=== PATIENT | female | born 1970 | race Caucasian/White ===

== ENCOUNTER 2021-04-24 20:25 | Emergency (ER) | payer MEDICARE, OTHER ==
[~2021-04-24] VITALS: Ht 165.1 cm; Wt 136.1 kg
[~2021-04-24 20:25] MED LIST: FLUPHENAZINE
[2021-04-24 23:31] LABS: BASOPHILS % 0.5 % (0.0-2.0); EOSINOPHILS % 2.2 % (0.0-5.0); HEMATOCRIT. 38.8 % (36.0-48.0); HEMOGLOBIN. 12.7 g/dL (12.0-16.0); LYMPHOCYTES % 30.5 % (20.0-50.0); MEAN CORPUSCULAR VOLUME 85.1 fL (81.0-99.0); MEAN PLATELET VOLUME 6.7 fl (7.4-10.4); MONOCYTES % 7.4 % (2.0-8.0); NEUTROPHILS % 59.4 % (40.0-76.0); PLATELET 178 x1000/uL (130-400); RED BLOOD CELL COUNT 4.55 mill/uL (4.2-5.4); RED CELL DISTRIBUTION WIDTH 15.1 % (11.6-14.6)
[2021-04-24 23:39] LABS: CHLORIDE 103 mEq/L (98-107)
[2021-04-25 12:54] VITALS: BP 164/92
== END 2021-04-25 13:17 ==
LOC: ER 20:25
DX: R13.10 Dysphagia, unspecified (principal); J44.9 Chronic obstructive pulmonary disease, unspecified; E11.9 Type 2 diabetes mellitus without complications; F20.9 Schizophrenia, unspecified; F17.200 Nicotine dependence, unspecified, uncomplicated; F14.10 Cocaine abuse, uncomplicated; Z79.899 Other long term (current) drug therapy
CPT/HCPCS: 36415; 71045; 80053; 83880; 84484; 85025; 93005; 99285

== ENCOUNTER 2021-12-19 21:54 | Emergency (ER) | payer MEDICAID, MEDICARE, OTHER ==
[~2021-12-19] VITALS: Ht 162.6 cm; Wt 160.0 kg
[2021-12-20 12:30] VITALS: BP 138/86
== END 2021-12-20 12:50 | disposition home or self-care (01) ==
LOC: ER 21:54
DX: M54.50 Low back pain, unspecified (principal); M54.2 Cervicalgia; J44.9 Chronic obstructive pulmonary disease, unspecified; E11.9 Type 2 diabetes mellitus without complications; F20.9 Schizophrenia, unspecified; F14.10 Cocaine abuse, uncomplicated; Z59.00 Homelessness unspecified
CPT/HCPCS: 36415; 72128; 72131; 84702; 99285